=== PATIENT | male | born 1965 | race Two or more races ===

== ENCOUNTER 2020-01-04 08:20 | Emergency (ER) | payer MEDICAID ==
[~2020-01-04] VITALS: Ht 185.4 cm; Wt 71.0 kg
[2020-01-04] MEDS ORDERED: KETOROLAC 60MG/2ML VIAL IM ONE (09:00)
[2020-01-04] MEDS ORDERED: AMLODIPINE 5MG TABLET PO ONE (09:00)
[2020-01-04 09:32] VITALS: BP 202/114
== END 2020-01-04 10:26 | disposition home or self-care (01) ==
LOC: ER 08:20
DX: M25.561 Pain in right knee (principal); I16.0 Hypertensive urgency; R94.31 Abnormal electrocardiogram [ECG] [EKG]
CPT/HCPCS: 93005; 96372; 99283; J1885